=== PATIENT | female | born 1995 | race Caucasian/White ===

== ENCOUNTER 2024-03-03 13:45 | Outpatient (CLI) | payer OTHER, SELFPAY ==
--- NOTE | ~2024-03-03 | US_ITS ---
EXAMINATION: US OB <= 14 weeks fetus DATE: 03/03/2024 15:21 HEAD BANQUET WAITER/WAITRESS INDICATION: Dating COMPARISON: 11/10/2023 TECHNIQUE: Real-time transabdominal obstetric ultrasound. FINDINGS: 1 para 0 Last menstrual period is given as 01/06/2024 The uterus measures 8.7 x 6.7 x 4.9 cm. A gestational sac is identified within the uterus. A pole is identified, with a crown-rump length that measures 1.7 cm, corresponding to an approx imate gestational age of 8 weeks and 1 day. cardiac activity is identified at a rate of 169 bpm. Despite prolonged interrogation, the right ovary was not visualized. The left ovary measures 2.7 x 2.3 x 2.4 cm. Corpus luteal cyst within the left ovary. Estimated date of delivery by ultrasound is 10/12/2024 IMPRESSION: Single intrauterine gestation with an approximate gestational age of 8 weeks and 1 day, with ca rdiac activity identified. Reviewed, dictated and finalized at location A. BANQUET WAITER/WAITRESS IMPRESSION: Single intrauterine gestation with an approximate gestational age of 8 weeks an d 1 day, with cardiac activity identified.
== END 2024-03-03 13:46 | disposition home or self-care (01) ==
LOC: GOSHIMG 13:45
PROVIDERS: PCP Student in an Organized Health Care Education/Training Program; Visit Provider Student in an Organized Health Care Education/Training Program
DX: Z34.90 Encounter for supervision of normal pregnancy, unspecified, unspecified trimester (principal); Z3A.08 8 weeks gestation of pregnancy
CPT/HCPCS: 76801

== ENCOUNTER 2024-07-02 08:50 | Emergency (ER) | payer OTHER, SELFPAY ==
--- NOTE | 2024-07-02 08:52 | ED.FEMALEGU ---
HPI - Female Genitourinary General Chief complaint: Urogenital-Female Stated complaint: /Vaginal Problems Time Seen by Provider: 07/02/24 08:51 Source: patient Mode of arrival: ambulatory Limitations: no limitations History of Present Illness HPI Narrative: Jovanny is a 29-year-old female patient presenting to the clinic today with complaints of a possible yeast infection. She is 25 weeks . Last menstrual period was January 02 2024. She reports she is prone to getting yeast infections. Has a clearish white thin vaginal discharge with vaginal irritation/itching. Denies any odor. Has had bacterial vaginosis in the past as well. No concern for STIs. Has been tested in the OBGYN office for STIs and was negative recently. Is in a monogamous relationship. Denies any fevers, chills, back pain, abdominal pain, or urinary symptoms. Related Data Home Medications ?Medication ?Instructions ?Recorded ?Confirmed ?Last Taken ?Type vits no.126-ferrous fum tablet PO 02/28/24 06/22/24 Unknown History 28 mg iron-folic acid 800 mcg tablet (Classic ) aspirin 81 mg tablet,delayed 81 mg PO DAILY 04/25/24 06/22/24 Unknown History release (Adult Low Dose Aspirin) Allergies Allergy/AdvReac Type Severity Reaction Status Date / Time No Known Allergies Allergy Verified 07/02/24 08:51 Review of Systems Review of Systems: Pertinent positives per HPI. Patient denies any fever, chills, rash, headache, visual changes, dizziness, cough, runny nose, sore throat, shortness of breath, chest pain, palpitations, nausea, vomiting, diarrhea, constipation, abdominal pain, or any urinary issues. [facility] Surgical History Surgical History History of surgical removal of ganglion cyst Family History Family History Grandparent Breast cancer Malignant neoplasm of prostate Mother Depression Father Hypertension Social History Social History Smoking status: Never smoker Alcohol intake: current Alcohol use details: rare Substance use: former Substance use type: marijuana Do You Feel Safe in your Home?: Yes Lack of Transportation: No Lack of Food: Never True Current Housing: I Have Housing Concerned About Future Housing: No Difficulty Paying Gas/Electric Bills: No Difficulty Paying for Meds: No Currently Unemployed: No Education: Don't Know Difficulty w/ Childcare or Family Care: No Living arrangements: with family Occupation/Education: occupation Additional occupation/education comments: [employer] Gender identity (if verbalized by the patient): Female Sexual Orientation (if Verbalized by the Patient): Straight or Heterosexual Comments At the time of my signature, I reviewed and agree with the nursing past medical, surgical, social, and family history. There is no relevant family history pertinent to the patient complaint. Exam Narrative: General: Well-developed, obese, in no apparent distress. Head: Normocephalic, atraumatic. Cardio: Regular rate and rhythm, s1 and s2 normal, no murmur appreciated. Resp: Clear to auscultation bilaterally, no rhonchi, rales, wheezing or rubs. Abdomen: Soft, abdomen, bowel sounds present in all quadrants, non-tender to palpation, no organomegly, no CVAT tenderness. : Deferred Course Course Emergency Course: Portions of this record may have been created with voice recognition software. Level of Care: Express Care Visit Vital Signs Vital signs: Vital Signs Temperature 36.7 C 07/02/24 08:57 Pulse Rate 90 07/02/24 08:57 Respiratory Rate 20 07/02/24 08:57 Blood Pressure 108/56 L 07/02/24 08:57 Pulse Oximetry 100 07/02/24 08:57 Oxygen Delivery Room Air 07/02/24 08:57 Temperature 36.7 C 07/02/24 08:57 Pulse Rate 90 07/02/24 08:57 Respiratory Rate 20 07/02/24 08:57 Blood Pressure 108/56 L 07/02/24 08:57 Pulse Oximetry 100 07/02/24 08:57 Oxygen Delivery Room Air 07/02/24 08:57 Vital signs reviewed MDM - Female Genitourinary MDM Narrative Medical decision making narrative: At the time of visit patient is resting comfortably on the exam table. Patient appears to be nontoxic. Plan: I suspect patient likely has a vaginal yeast infection. Unfortunately Diflucan is not safe for so recommend [id number] Monistat to treat symptoms and follow up with OBGYN if symptoms persist. General culture and bacterial vaginosis swab was sent to lab. No treatment for BV was recommended at this time. Supportive measures were discussed with the patient and they voiced understanding discharge instructions and agrees to treatment plan. Return precautions reviewed Differential Diagnosis Differential diagnosis: Likely urinary tract infection, bacterial vaginosis, trichomoniasis, vaginitis, cystitis and other (Vaginal yeast infection) Discharge Plan Discharge Clinical Impression: Vaginal discharge, Vaginal irritation Patient Disposition: Home Condition: Stable Instructions: Antibiotic Form, Yeast Infection (ED), Vaginal Discharge (ED) Additional Instructions: Genital culture and bacterial vaginosis swabs were sent to the lab. Increase fluids and stay well hydrated May take Tylenol as needed for pain May apply tucks pads to the vulva to help alleviate pain and itching May use [id number] topical/vaginal suppository Monistat to treat vaginal yeast infection. Recommend 3 day pack. Follow-up with your OBGYN-call office on Wednesday to schedule appointment if your still having symptoms. Approved Medications for Patients Cold and Flu Symptoms --Tylenol (regular or extra Strength) Fever (call if over 101?)--Tylenol (regular or extra Strength) Nasal Drainage/Head Congestion--Chlor-Trimeton, Sudafed, Tavist,Tylenol Sinus Cough--Robitussin, Delsym, Mucinex Sore Throat--Chloraseptic, Cepacol lozenges Allergy Symptoms--Bendryl, Zyrtec, Zyrtec D, Claritin, Claritin D Nausea--Emetrol, Vitamin B6 Tablets, Toshia, Toshia Tea, Preggie Pops, B- Suckers Constipation--Milk of Magnesia, Metamucil, Fiberall, Konsyl, Colace (Docusate Sodium) Diarrhea--Imodium, Kaopectate, Follow BRAT diet: bananas, rice, applesauce, tea/toast Heartburn--Maalox, Mylanta, TUMS, Prilosec OTC, Zantac, Tagment, Prevacid, Pepcid Hemorrhoids--Tucks Pads, Anusol, Preparation H, warm sitz baths Patient Language: Togolese Prescriptions: No Action Classic 28 mg iron- 800 mcg tablet PO aspirin [Adult Low Dose Aspirin] 81 mg tablet,delayed release (DR/EC) 81 mg PO DAILY Follow-up/Referrals: UNKNOWN,DOCTOR [Non-Staff] - Time of Disposition: 09:07 Quality NIHSS Nursing Documentation ED NIHSS nursing documentation: reviewed/agree
[2024-07-02 08:57] VITALS: BP 108/56; PULSE 90; RESP 20; TEMP 36.7; O2SAT 100
[2024-07-04 13:42] LABS: Bacterial Vaginosis NEGATIVE (NEGATIVE)
== END 2024-07-02 09:15 | disposition home or self-care (01) ==
PROVIDERS: Emergency Provider Nurse Practitioner Family
DX: O99.891 Other specified diseases and conditions complicating pregnancy (principal); Z3A.25 25 weeks gestation of pregnancy; N89.8 Other specified noninflammatory disorders of vagina; Z79.82 Long term (current) use of aspirin
CPT/HCPCS: 81513; 87070; 99213; G0463

== ENCOUNTER 2024-10-15 16:48 | Inpatient (IN) | payer OTHER, SELFPAY ==
[2024-10-15] VITALS (7 sets, daily range): BP systolic 117–136; BP diastolic 70–84; PULSE 88–100; RESP 18–20; TEMP 36.6–36.8; BMI 39.1
[2024-10-15] MEDS: DINOPROSTONE 10 MG VAG INSERT VAGINAL (19:09)
[2024-10-15 19:19] LABS: Hematocrit 35.2 % (37.0-47.0); Hemoglobin 11.6 g/dL (12.0-15.0); Immature Granulocyte Percent A 0.5 % (0-0.5); Lymphocytes Absolute Auto 1.43 K/mm3 (0.9-3.2); Mean Corpuscular HGB Conc 33.0 g/dl (32-36); Mean Corpuscular Hemoglobin 29.4 pg (26-34); Mean Corpuscular Volume 89.1 fl (80-100); Nucleated Red Blood Cells Absolute Auto 0.000 K/mm3 (0.0-0.012); Nucleated Red Blood Cells Perc 0.0 % (0.0-0.2); Platelet Count Result 209 k/mm3 (150-375); Red Blood Count 3.95 M/mm3 (4.2-5.4); White Blood Count 8.4 K/mm3 (4.5-10.0)
[2024-10-15 20:03] LABS: Syphilis IgG/IgM Antibody Non-Reactive (Nonreactive)
[2024-10-16] VITALS (154 sets, daily range): BP systolic 82–164; BP diastolic 40–87; PULSE 61–160; RESP 18–19; TEMP 36.5–37.1; O2SAT 97–100
--- NOTE | 2024-10-16 06:09 | WPDANESEPP ---
Anes - Eval Pre Procedure Procedure: Labor epidural Date/Time: 10/16/24 06:09 Surgeon: Yemi Preop Diagnosis: Abdominal pain with contractions Pre Op Diagnosis: Induction of Labor Patient Data Age: 29 Gender: F Height: 1.68 m Weight: 110 kg Last Vital Signs Temp 97.9 F 10/16/24 04:00 Pulse 84 10/16/24 02:52 Resp 18 10/16/24 04:00 BP 119/70 10/16/24 02:52 O2 Del Method Room Air 10/15/24 20:32 Allergies Allergy/AdvReac Type Severity Reaction Status Date / Time No Known Allergies Allergy Verified 10/12/24 08:18 Home Medications ?Medication ?Instructions ?Recorded ?Confirmed ?Type vits no.126-ferrous fum tablet PO 02/28/24 10/12/24 History 28 mg iron-folic acid 800 mcg tablet (Classic ) aspirin 81 mg tablet,delayed 81 mg PO DAILY 04/25/24 10/16/24 History release (Adult Low Dose Aspirin) docusate sodium 100 mg capsule 100 mg PO DAILY 08/17/24 10/16/24 History (Colace) ferrous sulfate 325 mg (65 mg 325 mg PO DAILY 08/17/24 10/16/24 History iron) tablet Laboratory Tests 10/15/24 19:07 WBC 8.4 K/mm3 (4.5-10.0) RBC 3.95 L M/mm3 (4.2-5.4) Hgb 11.6 L g/dL (12.0-15.0) Hct 35.2 L % (37.0-47.0) MCV 89.1 fl (80-100) MCH 29.4 pg (26-34) MCHC 33.0 g/dl (32-36) RDW 15.4 H % (11.5-14.5) Plt Count 209 k/mm3 (150-375) MPV 9.9 fl (7.4-10.4) Immature Gran % (Auto) 0.5 % (0-0.5) Neut % (Auto) 77.1 H % (45.5-73.1) Lymph % (Auto) 17.0 L % (18.3-44.2) Imperial % (Auto) 5.1 % (2.6-8.5) Eos % (Auto) 0.2 % (0-4.4) Baso % (Auto) 0.1 L % (0.2-1.2) Lymph # (Auto) 1.43 K/mm3 (0.9-3.2) Imperial # (Auto) 0.4 K/mm3 (0.1-0.6) Eos # (Auto) 0.0 K/mm3 (0-0.3) Baso # (Auto) 0.0 K/mm3 (0.0-0.1) Abs Immat Gran (auto) 0.04 H K/mm3 (0.00-0.031) Absolute Neuts (auto) 6.5 K/mm3 (1.3-6.7) Absolute Nucleated RBC 0.000 K/mm3 (0.0-0.012) Nucleated RBC % 0.0 % (0.0-0.2) Syphilis IgG/IgM Ab Non-reactive (Nonreactive) Blood Type O Positive Antibody Screen Negative : gestational age HCG: positive Patient hx anesthesia problems: none Family hx anesthesia problems: none Results Review: All pre-operative results and documents have been reviewed as part of the pre-operative evaluation. [facility] Past Medical History Medical History Surgical History Surgical History History of surgical removal of ganglion cyst Family History Family History Grandparent Breast cancer Malignant neoplasm of prostate Mother Depression Father Hypertension Social History Social History Smoking status: Never smoker Alcohol intake: current Alcohol use details: rare Substance use: former Substance use type: marijuana Do You Feel Safe in your Home?: Yes Lack of Transportation: No Lack of Food: Never True Current Housing: I Have Housing Concerned About Future Housing: No Difficulty Paying Gas/Electric Bills: No Difficulty Paying for Meds: No Currently Unemployed: No Education: High School Diploma/GED Difficulty w/ Childcare or Family Care: No Living arrangements: with family Occupation/Education: occupation Additional occupation/education comments: [employer] Gender identity (if verbalized by the patient): Female Sexual Orientation (if Verbalized by the Patient): Straight or Heterosexual Spiritual care concerns: No Exam Day of Procedure 10/16/24 06:09 Patient weight: obese
--- NOTE | 2024-10-16 07:18 | PM.IMHP ---
H&P: HPI History of Present Illness Date/Time: 10/16/24 07:18 Chief Complaint: Intrauterine at term Narrative: 29 yo at 40w3d who presents for IOL. Review of Systems Cardiovascular: Cardiovascular: Denies chest pain, Denies leg edema, Denies palpitations, Denies dyspnea and Denies dyspnea on exertion Respiratory: Respiratory: Denies cough, Denies dyspnea and Denies dyspnea on exertion Gastrointestinal: Gastrointestinal: Denies abdominal pain, Denies constipation, Denies diarrhea, Denies nausea and Denies vomiting Genitourinary: Genitourinary: Denies hematuria, Denies urinary frequency, Denies dysuria, Denies pelvic pain, Denies urinary incontinence and Denies vaginal discharge Neurologic: Reports system reviewed and no additional complaints, except as documented Psychiatric: Psychiatric: Reports no additional psychiatric complaints Endocrine: Endocrine: Denies palpitations [facility] Past Medical History Medical History (Updated 10/16/24 @ 07:19 by Per Bragg MD) Surgical History Surgical History History of surgical removal of ganglion cyst Family History Family History Grandparent Breast cancer Malignant neoplasm of prostate Mother Depression Father Hypertension Social History Social History Smoking status: Never smoker Alcohol intake: current Alcohol use details: rare Substance use: former Substance use type: marijuana Do You Feel Safe in your Home?: Yes Lack of Transportation: No Lack of Food: Never True Current Housing: I Have Housing Concerned About Future Housing: No Difficulty Paying Gas/Electric Bills: No Difficulty Paying for Meds: No Currently Unemployed: No Education: High School Diploma/GED Difficulty w/ Childcare or Family Care: No Living arrangements: with family Occupation/Education: occupation Additional occupation/education comments: [employer] Gender identity (if verbalized by the patient): Female Sexual Orientation (if Verbalized by the Patient): Straight or Heterosexual Spiritual care concerns: No Meds Home Medications and Allergies Home Medications ?Medication ?Instructions ?Recorded ?Confirmed ?Type vits no.126-ferrous fum tablet PO 02/28/24 10/12/24 History 28 mg iron-folic acid 800 mcg tablet (Classic ) aspirin 81 mg tablet,delayed 81 mg PO DAILY 04/25/24 10/16/24 History release (Adult Low Dose Aspirin) docusate sodium 100 mg capsule 100 mg PO DAILY 08/17/24 10/16/24 History (Colace) ferrous sulfate 325 mg (65 mg 325 mg PO DAILY 08/17/24 10/16/24 History iron) tablet Allergies Allergy/AdvReac Type Severity Reaction Status Date / Time No Known Allergies Allergy Verified 10/12/24 08:18 Vital Signs Vital Signs - 24 hr 10/15/24 17:44 10/15/24 17:46 10/15/24 18:01 Temperature Pulse Rate 98 94 96 Respiratory Rate Blood Pressure 125/73 122/77 125/79 Oxygen Delivery 10/15/24 18:16 10/15/24 19:00 10/15/24 20:32 Temperature 98 F Pulse Rate 100 Respiratory Rate 18 Blood Pressure 136/84 Oxygen Delivery Room Air 10/15/24 21:00 10/15/24 21:53 10/16/24 02:52 Temperature 98.3 F Pulse Rate 88 84 Respiratory Rate 20 Blood Pressure 117/70 119/70 Oxygen Delivery 10/16/24 04:00 10/16/24 06:46 10/16/24 07:01 Temperature 97.9 F Pulse Rate 90 99 Respiratory Rate 18 Blood Pressure 133/72 135/71 Oxygen Delivery 10/16/24 07:16 Temperature Pulse Rate 120 H Respiratory Rate Blood Pressure 144/75 H Oxygen Delivery Exam Const: General: no acute distress Eyes: EOM: EOMs intact bilaterally Neck: Neck: supple Thyroid: thyroid normal Chest: Breast/axilla inspection: normal inspection of the breasts Breast/axilla palpation: normal palpation of the breasts, normal palpation of the axillae and no axillary lymphadenopathy Resp: Effort & Inspection: normal respiratory effort Auscultation: clear to auscultation bilaterally Cardio: Rate: regular rate Rhythm: regular rhythm GI: Inspection: non-distended and other (Gravid) GI Palp: Yes Soft to palpation, No Tenderness to palpation present (GI) and No Guarding due to palpation present (GI) Auscultation: normal bowel sounds : Speculum Exam - Vagina: No vaginal bleeding OB/external & speculum: external exam normal; No vaginal bleeding Skin: General skin exam: normal color and no rashes or lesions noted Neuro: Cognition (Neuro): normal cognition Speech: normal speech Extrem: General: normal to inspection Psych: Mental Status: mental status grossly normal Affect: normal affect H&P: Results Labs Labs: Short CBC 10/15/24 Range/Units 19:07 WBC 8.4 (4.5-10.0) K/mm3 Hgb 11.6 L (12.0-15.0) g/dL Hct 35.2 L (37.0-47.0) % Plt Count 209 (150-375) k/mm3 Assessment and Plan Assessment and plan (1) : Code(s): Z34.90 - Encounter for supervision of normal , unspecified, unspecified trimester Status: Acute Assessment and Plan: 29 yo at 40w3d who presents for IOL admit to L&D routine admission orders prenatals reviewed Rh positive GBS negative plan for Cervidil IOL continuos EFM may have epidural PRN
[2024-10-16] MEDS: LACTATED RINGERS 1,000 ML 125 ML IV CONT ×2 (08:55→12:43)
[2024-10-16] MEDS: OXYTOCIN 30 UNITS/NS 500 ML 30 UNITS/500 ML BAG IV CONT (08:55)
[2024-10-16] MEDS: fentaNYL CITRATE INJ (*CRX) 100 MCG/2 ML VIAL IV PUSH (11:57)
--- NOTE | 2024-10-16 18:18 | PM.OBPRVD ---
OB - Vaginal Delivery Note Procedure Delivery date: 10/16/24 Induction method: Per Cervidil Protocol Delivery augmentation: Pitocin Delivery monitor: External FHT and External Uterine Route of delivery: Episiotomy description: None Laceration Description: Periurethral and Perineal - 2nd Degree Delivery repair: vicryl Specimen: No Quantitative Blood Loss (ml): 250 Anesthesia type: Epidural Disposition: Floor Complications: No immediate complications Narrative: Patient pushed for a spontaneous vaginal delivery. A nuchal cord x 1 was noted and delivered through. The fetus was delivered atraumatically and placed on the maternal abdomen. The cord was clamped and cut after 1 minute of life. The cord was double clamped and cut and a segment of cord was collected for cord gases. Cord blood was collected for blood type and Coomb's testing. The placenta delivered spontaneously and was noted to be intact. The perineum was inspected and periurethral and 2nd degree perineal lacerations were noted. The lacerations was repaired with 3-0 vicryl in a running fashion. The fundus was noted to be firm and good hemostasis was noted. The mom and were stable in the delivery room. Baby Date of : 10/16/24 Time of : 17:57 Gestational Age by Date: 40 Infant gender: Female presentation: vertex position: Right Occiput Anterior Placenta delivery description: Spontaneous Cord Vessel Description: 3 Vessels and Nuchal Cord score one minute: 8 score five minutes: 9
[2024-10-16] MEDS: OXYTOCIN 30 UNITS/NS 500 ML 30 UNITS/500 ML BAG 125 UNITS IV CONT (18:29)
[2024-10-16] MEDS: IBUPROFEN 600 MG TABLET PO (19:44)
[2024-10-16] MEDS: WITCH HAZEL 40 PADS 1 PAD TOPICAL (20:33)
[2024-10-16] MEDS: BENZOCAINE 20% AER SPR (*SP) 56 GM CAN 1 SPRAY TOPICAL (20:33)
--- NOTE | 2024-10-16 20:52 | OBPPTRN ---
Patient transferred to post room #292 via wheelchair at 20:47. FOB present. Oriented to unit, room, information board, rooming in, admission packet and security measures. Patient verbalizes understanding.
[2024-10-16] MEDS: ACETAMINOPHEN 325 MG TABLET 650 MG PO (21:08)
[2024-10-17] VITALS (11 sets, daily range): BP systolic 107–133; BP diastolic 50–75; PULSE 90–121; RESP 12–20; TEMP 36.1–37.1; O2SAT 18–100
--- NOTE | 2024-10-17 00:13 | PC.NURSE ---
2300- This RN assisted pt up to restroom to void, pt voided x1, pericare given. Escorted pt back to bed without difficulty. Pt instructed to call for help when needing to toilet next.
[2024-10-17] MEDS: IBUPROFEN 600 MG TABLET PO ×3 (04:22→20:00)
[2024-10-17 05:05] LABS: Hematocrit 24.6 % (37.0-47.0); Hemoglobin 7.9 g/dL (12.0-15.0)
--- NOTE | 2024-10-17 08:05 | PM.OBPNVD ---
OB - PN: Subj Subjective Date/time seen: 10/17/24 08:05 Interval history: Patient doing well this morning. She does report fatigue. She denies any shortness of breathe. Patient comments: no complaints, pain well controlled and tolerating diet baby status: doing well [place] feeding status: exclusively breast feeding Narrative: patient doing well this AM. No complaints. Pain is well controlled. She reports minimal bleeding. She is ambulating and voiding without difficulty. She is tolerating PO. She denies N/V, fever, chills. OB - PN: Obj Data Labs 10/17/24 04:41 Labs: Laboratory Results - last 24 hr 10/15/24 10/17/24 19:07 04:41 Hgb 7.9 L D Hct 24.6 L Blood Type O Positive Antibody Screen Negative Crossmatch See Detail OB - PN A/P Plan day: 1 Plan: routine care Comments: patient doing well H/H 7.9/24, pt reports fatigue. discussed transfusions. Risks and benefits discussed. will proceed with 2 units pRBCs plan for repeat CBC in AM continue routine care Time Spent With Patient Time: Total time spent is greater than 50% in coordination of care (as documented) at patient's floor/unit and/or counseling patient: Time with patient: less than 15 minutes Review of Systems Review of Systems: All systems reviewed & are unremarkable except as noted in HPI and below Exam Const: General: comfortable and no acute distress Resp: Effort & Inspection: normal respiratory effort Cardio: Rate: regular rate GI: GI Palp: Yes Soft to palpation and No Tenderness to palpation present (GI) Auscultation: normal bowel sounds Other: fundus firm and below umbilicus. Psych: Affect: normal affect
--- NOTE | 2024-10-17 08:07 | WPDANLDPN2 ---
Anes-Prog Note L&D Date/Time: 10/17/24 08:07 Comfortable throughout: labor and delivery Neuraxial method: epidural Epidural/Spinal procedure site: clean & non-tender Neuro status: Neuro function grossly intact. Cardiovascular status: normal Respiratory status: normal Airway patency: baseline Mental status: baseline Vital Signs: Last Vital Signs Temp 36.3 C L 10/17/24 04:55 Pulse 121 H 10/17/24 04:55 Resp 20 10/17/24 04:55 BP 108/50 L 10/17/24 04:55 Pulse Ox 96 10/17/24 04:55 O2 Del Method Room Air 10/16/24 21:20 Pain score (VAS): 0 I/O: Intake & Output 10/16/24 10/17/24 10/17/24 23:59 07:59 15:59 Intake Total 500 Output Total 485 Balance 15 Patient feedback: Patient satisfied with anesthetic care.
[2024-10-17] MEDS: BENZOCAINE 20% AER SPR (*SP) 56 GM CAN 1 SPRAY TOPICAL (08:34)
[2024-10-17] MEDS: WITCH HAZEL 40 PADS 1 PAD TOPICAL (08:34)
[2024-10-17] MEDS: TUBING, BLOOD PLUM PUMP TUBING 1 EACH XX ×2 (08:36→15:40)
[2024-10-17] MEDS: MULTIVIT/MIN/PREN/FOL AC/IRON TABLET 1 TAB PO (08:36)
[2024-10-17] MEDS: DOCUSATE SODIUM 100 MG CAPSULE PO (08:36)
[2024-10-17] MEDS: ACETAMINOPHEN 325 MG TABLET 650 MG PO ×3 (09:02→22:49)
[2024-10-17] MEDS: SODIUM CHLORIDE 0.9% IV 250 ML 30 ML IV CONT (09:03)
--- NOTE | 2024-10-17 10:20 | PC.NURSE ---
Introductions were made, then consulted with patient to assess needs related to . Discussed with mother her?plans to feed?her and the?experience so far. She plans to exclusively pump and bottle feed and is supplementing with formula at this time. She has not felt up to pumping yet but we reviewed that she will need to be consistent with pumping 8 times each day. She has her own Mom Cozy pump and will call out for flange sizing when she is ready to start pumping. Pumping for Your and Breast Milk Storage Guideline handouts given. Resources provided for inpatient and outpatient services with the feeding sheet, mom/baby guide and name written on the communication board. Mother voiced understanding of information and will call when she is ready for assistance. Reported to the Primary RN.
[2024-10-17] MEDS: SODIUM CHLORIDE 0.9% IV 250 ML 30 ML (15:40)
[2024-10-18] MEDS: IBUPROFEN 600 MG TABLET PO (04:23)
[2024-10-18 05:39] LABS: Hematocrit 28.1 % (37.0-47.0); Hemoglobin 8.9 g/dL (12.0-15.0)
--- NOTE | 2024-10-18 06:30 | PC.NURSE ---
Per primary RN, patient is exclusively bottle feeding and does not wish to pump. No further needs.
--- NOTE | 2024-10-18 07:49 | P.DS_ITS ---
DS: Admitting Diagnosis Discharge Date 10/18/24 Admitting Diagnosis intrauterine at term DS: Discharge Diagnosis Discharge Diagnosis (1) Normal vaginal delivery: Code(s): O80 - Encounter for full-term uncomplicated delivery Status: Acute OB - DS: Summary OB Procedures : None OB Procedures Intrapartum: Spontaneous Vag Delivery OB Procedures: : Transfusion Peripartum Data Infant Delivery Method: Natural Vaginal Laceration Description: Periurethral and Perineal - 2nd Degree Episiotomy description: None complications: transfusion Status at Discharge Functional status at discharge: independent ambulation Overall status at discharge: patient is back to baseline Time Spent with Patient Time attestation: Total time spent providing and/or coordinating discharge services: Time spent: Less than 30 minutes Exam Const: General: comfortable and no acute distress Resp: Effort & Inspection: normal respiratory effort Auscultation: clear to auscultation bilaterally Cardio: Rate: regular rate GI: GI Palp: Yes Soft to palpation Auscultation: normal bowel sounds Other: Fundus firm below umbilicus Psych: Appearance: grossly normal Mental Status: mental status grossly normal Affect: normal affect DS: Data Data Completed and Pending Labs on day of discharge: Labs from last 24 hours 10/18/24 10/15/24 04:16 19:07 Hgb 8.9 L Hct 28.1 L Blood Type O Positive Antibody Screen Negative Crossmatch See Detail Discharge Plan Discharge Discharging Clinician: Per Bragg Patient Disposition: Home Activity: as tolerated and pelvic rest Diet: regular Patient Instructions: Antibiotic Form, Vaginal Delivery (DC) Patient Language: Setswana Stand Alone Forms: General Discharge Information Follow-up/Referrals: Per Bragg MD [Physician, [employer]] Discharge Medications: New acetaminophen 500 mg tablet 500 mg PO Q6H PRN (Reason: pain) Qty: 30 0RF ibuprofen 600 mg tablet 600 mg PO Q6H PRN (Reason: pain) Qty: 30 0RF Continued docusate sodium [Colace] 100 mg capsule 100 mg PO DAILY ferrous sulfate 325 mg (65 mg iron) tablet 325 mg PO DAILY Qty: 90 0RF Discontinued aspirin [Adult Low Dose Aspirin] 81 mg tablet,delayed release (DR/EC) 81 mg PO DAILY No Action Classic 28 mg iron- 800 mcg tablet PO Date of admission: 10/15/24 16:48 Primary Care Provider: UNKNOWN,DOCTOR Admitting Provider: Per Bragg Attending physician on admission: Per Bragg Condition: Stable
[2024-10-18 08:07] VITALS: BP 125/74; PULSE 85; RESP 16; TEMP 36.4; O2SAT 98
[2024-10-18] MEDS: DOCUSATE SODIUM 100 MG CAPSULE PO (08:09)
[2024-10-18] MEDS: MULTIVIT/MIN/PREN/FOL AC/IRON TABLET 1 TAB PO (08:09)
--- NOTE | 2024-10-18 10:13 | PC.NURSE ---
Patient viewed the discharge video Mother & Baby Care, The First Two Weeks. Patient was given the opportunity and encouraged to ask questions. Patient verbalized understanding of information shared and has been given the mother/baby guide for home reference.
--- NOTE | 2024-10-18 10:30 | PC.NURSE ---
Patient requested flange sizing before discharge today. She has her own [employer] wearable pump. Her intention is to exclusively pump and feed. She is educated on the need to pump consistently every three hours (at least 8x/day) for 15 minutes. Reviewed using the different modes of the pump. Patient measures at 15mm and per her manual a 17mm insert is recommended. She only has a 21mm insert at this time and this is acceptable to use until she is able to get the correct size insert. Patient declines having any other questions or concerns at this time. She has the Mom/Baby Guide and the Team phone number for additional resources as needed. Primary RN updated.
[2024-10-19 10:16] VITALS: BP 127/74; PULSE 73; RESP 18; TEMP 36.6; O2SAT 99
== END 2024-10-18 11:55 | disposition home or self-care (01) | DRG 807 ==
LOC: ANHLDR 16:51 → ANHOB2 10-16 20:54
PROVIDERS: Admitting Provider Student in an Organized Health Care Education/Training Program; Visit Provider Student in an Organized Health Care Education/Training Program
DX: O69.81X0 Labor and delivery complicated by cord around neck, without compression, not applicable or unspecified (principal); Z37.0 Single live birth; Z3A.40 40 weeks gestation of pregnancy; O71.82 Other specified trauma to perineum and vulva; O70.1 Second degree perineal laceration during delivery; O77.0 Labor and delivery complicated by meconium in amniotic fluid
CPT/HCPCS: 36415; 36430; 85014; 85018; 85025; 86593; 86850; 86900; 86901; 86923; A9270; J2590; J2795; J3010; J7050; J7120; P9016